=== PATIENT | male | born 1965 | race Two or more races ===

== ENCOUNTER 2021-05-13 10:44 | Outpatient (CLI) | payer OTHER | END 2021-05-13 10:50 | disposition home or self-care (01) | LOC: LAB 10:44 | DX: Z20.822 Contact with and (suspected) exposure to COVID-19 (principal); Z20.828 Contact with and (suspected) exposure to other viral communicable diseases; Z11.52 Encounter for screening for COVID-19 ==

== ENCOUNTER 2021-05-17 15:20 | Outpatient (CLI) | payer OTHER | END 2021-05-17 15:45 | disposition home or self-care (01) | LOC: PPH VACUNA 15:20 | PROVIDERS: ATTEND Emergency Medicine Pediatric Emergency Medicine | DX: Z23 Encounter for immunization (principal) ==